=== PATIENT | female | born 1970 | race African-American/Black ===

== ENCOUNTER → 2019-11-24 | Outpatient (CLI) | payer OTHER ==
--- NOTE | 2019-11-28 13:08 | PATH ---
[facility] [address] [place] [address] PATHOLOGY RPT PROCEDURE Name: PEARLJEFFERY Room #: REG [facility] M.R.#: [id number] Admission: 11/24/19 Date of : 74 Discharge: Report #: [id number] Path Case #: [id number] [facility] Accession Number: [id number] . 01 Material submitted: . breast - LEFT BREAST 9:00 1CM. Modifiers: left, 9:00 . 02 Diagnosis: Left breast, 9:00, 1.0 cm from nipple, needle core biopsy: - Benign breast tissue with changes compatible with duct ectasia, stromal fibrosis, histiocytic reaction in addition to columnar cell change, changes compatible with reactive/reparative changes. - Negative for atypia or malignancy. (See comment) . (IUV:mml; 11/27/2019) QLM 11/27/2019 1231 Local . 02 Comment: Multiple properly-controlled immunohistochemical stains are performed on block A1. The ducts are reactive to AE1/AE3. All of the ducts examined are surrounded by an intact myoepithelial layer as noted with the properly-controlled p63 and myosin heavy chain immunohistochemical stains. ER fails to show diffuse and strong reactivity consistent with reactive changes within the breast ducts. . Dr. Oneida Huston has seen district representative slides (A1-level 13) of this case and concurs with the diagnosis. . (IUV:mml; 11/27/2019) . 02 Electronically signed: . Shy Spears MD, Pathologist NPI- [id number] . 01 Gross description: . The specimen is received in formalin, labeled "Jeffery Kaerns, left breast 9:00 1 cm" and consists of 4 pink-frias to yellow fibrofatty breast cores measuring from 1.1 x 0.7 x 0.3 cm to 1.8 x 0.6 x 0.2 cm. They are entirely submitted in A1-A3. They were collected at 11:30 AM in placed in formalin at 11:30 AM. The cold ischemic time is less than 1 minute and the total time in formalin is greater than 6 hours and less than 72. ([facility]; 11/24/2019) JFQ/ETHANQ 11/24/2019 1531 Local . 02 Pathologist provided ICD-10: N60.42, N60.32 [place] [address] PATHOLOGY RPT PROCEDURE Name: JEFFERY KEARNS Vandana Room #: REG CLI Malik#: [id number] Admission: 11/24/19 Date of : 74 Discharge: Report #: [id number] Path Case #: [id number] . 02 CPT . 262904, [id number], [id number] Specimen Comment: A courtesy copy of this report has been sent to [phone], [phone] Specimen Comment: [phone] Specimen Comment: Report sent to / DR SOTOMAYOR Performed at: [address], [place] [id number] MD Star Trevizo MD Phone: [phone] Performed at: [address] [id number] MD Shy Spears MD Phone: [phone]
== END | disposition home or self-care (01) ==
LOC: ULTRA 10:05
DX: N60.42 Mammary duct ectasia of left breast (principal); N60.32 Fibrosclerosis of left breast; R92.1 Mammographic calcification found on diagnostic imaging of breast